=== PATIENT | female | born 1985 | race Caucasian/White ===

== ENCOUNTER 2016-11-18 11:24 | Emergency (ER) | payer OTHER ==
[2016-11-18] MEDS ORDERED: LORazepam 2 MG/ML DISP.SYRIN IV ONE (12:13)
[2016-11-18] MEDS ORDERED: ONDANSETRON HCL/PF 2 MG/ML VIAL IV ONE (12:13)
[2016-11-18] MEDS ORDERED: NORMAL SALINE 1,000 ML in NORMAL SALINE 1,000 ML IV ONE (12:13)
[2016-11-18] MEDS ORDERED: LORazepam 2 MG/ML DISP.SYRIN ONE (12:23)
[2016-11-18] MEDS ORDERED: ONDANSETRON HCL/PF 2 MG/ML VIAL ONE (12:23)
[2016-11-18 12:26] LABS: Hematocrit 39.2 % (37.0-47.0); Hemoglobin 13.3 gm/dL (12.5-16.0); Mean Cell Volume 90.5 fl (78-100); Mean Corpuscular Hemoglobin 30.7 pg (27-31); Mean Corpuscular Hgb Conc 33.9 g/dl (32-36); Mean Platelet Volume 8.5 fl (6.0-9.5); Neutrophil # 4.6 K/mm3 (1.3-6.0); Neutrophil % 63.4 % (42-75.0); Platelet Count 293 K/mm3 (150-450); Red Blood Count 4.33 M/mm3 (4.2-5.4); Red Cell Distribution Width 12.8 % (11.5-14.0); White Blood Count 7.2 K/mm3 (4.0-10.5)
--- NOTE | 2016-11-18 12:28 | ERNOTE ---
Medical Problem HPI - General Chief Complaint: Alcohol Intoxication Time Seen by Provider: 11/18/16 12:03 Source: patient Exam Limitations: no limitations - Immun/Allergies/Home Medications Immunizations: IMMUNIZATION HX Immunizations Up to Date Yes History of Influenza Vaccine No Hx Pneumococcal Vaccination No Allergies/Adverse Reactions: Allergies No Known Allergies Allergy (Verified 11/18/16 11:35) Home Medications: HOME MEDICATIONS Ondansetron [Zofran Odt] 4 mg PO Q6H PRN #20 tab 11/18/16 [Last Taken Unknown] chlordiazePOXIDE HCL [Librium] 10 mg PO QID PRN #30 capsule 11/18/16 [Last Taken Unknown] - History of Present History Narrative: She admits to heavy drinking alcohol for the past 7 years. She states she drinks at least a fifth of vodka every day over this time.. She has decided over the last 48 hours that she needs to quit drinking and pursuant to that she has indeed quit, but she is now having nausea and vomiting and appears to be going into some fairly profound shaking. Timing: constant Severity: moderate - to severe Review of Systems - Review of Systems Constitutional: Present: See HPI EYE: Present: no symptoms reported ENT: Present: no symptoms reported Respiratory: Present: no symptoms reported Cardiology: Present: no symptoms reported Gastrointestinal/Abdominal: Present: nausea, vomiting Genitourinary: Present: no symptoms reported Musculoskeletal: Present: no symptoms reported Skin: Present: no symptoms reported Neurological: Present: tremors Endocrine: Present: no symptoms reported Hematologic/Lymphatic: Present: no symptoms reported Psych: Present: no symptoms reported - Patient's Past Medical History Patient History - Medical: No pertinent hx Patient History - Cardiac/Respiratory: No pertinent hx Patient History - Cancer: No Hx of Cancer Patient History - Surgical Procedures: Patient History - Other: None - Social History Living Situations: home Abuse History: No History of abuse Psych History: No pertinent hx Alcohol Use: heavy Drug Use: none - Immunizations Immunizations Up to Date: Yes Hx Pneumococcal Vaccination: No History of Influenza Vaccine: No Physical Exam - Physical Exam General Appearance: Present: wd/wn, alert, severe distress, anxious Eye Exam: Normal inspection: bilateral, PERRL: bilateral Ears, Nose, Throat: Present: dry mucous membranes Neck: Present: normal inspection, nontender Respiratory: Present: no respiratory distress, normal breath sounds, no accessory muscle use, chest nontender, lungs clear Cardiovascular/Chest: Present: regular rate, rhythm, no murmur, normal peripheral pulses Gastrointestinal/Abdominal: Present: normal bowel sounds, nondistended, soft, no organomegaly, tenderness - generalized Rectal Exam: Present: deferred Back Exam: Present: normal inspection, normal range of motion Extremity Exam: Present: normal inspection, non-tender, no edema, normal range of motion Neurological Exam: Present: alert, oriented, normal mood/affect Skin Exam: Present: normal color, warm/dry Lymphatic Exam: Present: no adenopathy ED Progress - Results and Orders Patient's Lab Results:: I have reviewed the patient's lab results. - Vital Signs Patient's Vital Signs:: I have reviewed the patient's vital signs. Vital Signs: Vital Signs 11/18/16 11:25 Temperature 36.5 C Pulse Rate 73 Respiratory 14 Rate Blood Pressure 129/94 O2 Sat by Pulse 99 Oximetry - Progress/Reassessment Chief Complaint: Alcohol Intoxication Plan - Plan Plan: This is a fairly complex and convoluted case unfortunately. Patient is neither homicidal nor suicidal and therefore does not meet admission to the hospital criteria. We tried across a variety of places to have her placed in a treatment facility for alcoholism and none are available in the [facility]. I did however make phone calls on her behalf to AA in [place] and they're going to help her get set up with a sponsor here in [place]. I discussed with the internal communications manager and the committal orders have been rescinded. She will get prescriptions for both antinausea medicine and Librium to help with any anxiety she may experience from withdrawal from alcohol. She was informed that she needs to keep her court date on November 22 this year. Departure - Departure Clinical Impression: Alcoholism Disposition: Home self-care Condition: Good Instructions: Alcohol Use Disorder, Finding Treatment for Addiction Prescriptions: Ondansetron [Zofran Odt] 4 mg PO Q6H PRN #20 tab PRN Reason: Nausea And Vomiting chlordiazePOXIDE HCL [Librium] 10 mg PO QID PRN #30 capsule PRN Reason: Anxiety
--- OUTSIDE RECORDS SUMMARY | 2016-11-18 12:36 | XMS REPORT | Continuity of Care Document ---
:1985 Author Organization [facility] ([facility]) Address [address] [place] [address] Phone [phone] Care Team Providers Name Role Phone Provider, No-Primary Care Primary Care Provider Unavailable Source Comments This disclosure is being made pursuant to the Care Everywhere program, applicable federal and state laws, and may not contain all informaitonavailable regarding this patient.[facility] ([facility]) Active Allergies and Adverse Reactions Not on File Current Medications Not on file Active Problems Not on file Social History Tobacco Use Types Packs/Day Years Used Date Never Assessed Plan of Care Health Maintenance Due Date Last Done Comments Hepatitis B Vaccine (1 of 3 - Primary Series) 1985 Tdap Vaccine 1994 Lipid Disorder Screening 2001 MMR Vaccine 2001 Td Vaccine 2001 Varicella Vaccine (1 of 2 - Adult - No Evidence of 2001 Immunity) Cervical Cancer Screening 2013 Influenza Vaccine: Seasonal (#1) 03/22/2016 Results from Last 3 Months Not on file
--- OUTSIDE RECORDS SUMMARY | 2016-11-18 12:36 | XMS REPORT | Continuity of Care Document ---
:1985 Author Organization [facility] [place] [address] Care Team Providers Name Role Phone Unavailable Primary Care Provider Unavailable Source Comments This disclosure is being made pursuant to the Voucheres program and maynot contain all information available regarding this patient.[facility] Active Allergies and Adverse Reactions Not on File Current Medications Be aware that medications may not be up to date as of this document. Alwaysverify current medications with the patient. Not on file Active Problems Not on file Social History Tobacco Use Types Packs/Day Years Used Date Never Assessed Plan of Care Health Maintenance Due Date Last Done Comments Retired-Pertussis Vaccine Adult 2002 Retired-Tetanus Vaccine Adult 2002 Pap Smear 2004 Retired-INFLUENZA VACCINE 04/22/2015 Results from Last 3 Months Not on file
[2016-11-18 12:38] LABS: Albumin * 4.1 gm/dl (3.4-5.0); Anion Gap 12.6 mmol/L (6.8-13.8); BUN/Creatinine Ratio 12.1 (9.0-21.6); Bilirubin, Total 0.3 mg/dL (0.0-1.1); Ca. Corrected For Albumin 8.6 mg/dL (8.4-10.2); Carbon Dioxide 27.8 mmol/L (24-32.6); Magnesium 1.7 mg/dL (1.2-2.8); Potassium 4.4 mmol/L (3.4-4.6); Total Protein 8.1 gm/dL (6.2-8.2)
[2016-11-18 13:12] LABS: Urine Bilirubin Negative (NEGATIVE); Urine Blood Negative /ul (NEGATIVE); Urine Ketone Negative (NEGATIVE); Urine Nitrite Negative (NEGATIVE); Urine Protein Negative (NEGATIVE); Urine Specific Gravity 1.015 SP.GR. (1.005-1.010); Urine Urobilinogen Normal (NORMAL)
[2016-11-18 13:23] LABS: Urine Appearance Clear; Urine Bacteria TRACE; Urine Color Yellow; Urine RBC None Seen /hpf (0-5); Urine WBC None Seen /hpf (0-5)
[2016-11-18 13:25] LABS: Cocaine Ur Negative (NEGATIVE); Urine Barbiturate Negative (NEGATIVE); Urine Benzodiazepines Negative (NEGATIVE); Urine Opiates Negative (NEGATIVE); Urine PCP Negative (NEGATIVE); Urine THC Negative (NEGATIVE)
[2016-11-18] MEDS ORDERED: NORMAL SALINE 1,000 ML IV ONE ×2 (13:40→13:41)
[2016-11-18 16:16] VITALS: BP 117/74
== END 2016-11-18 16:10 | disposition home or self-care (01) ==
LOC: ER 11:24
DX: F10.239 Alcohol dependence with withdrawal, unspecified (principal); T51.0X1A Toxic effect of ethanol, accidental (unintentional), initial encounter; Y90.9 Presence of alcohol in blood, level not specified
CPT/HCPCS: 36415; 80053; 80307; 81001; 83735; 84703; 85025; 96374; 96375; 99284; G0481

== ENCOUNTER 2018-08-05 11:49 | Inpatient (IN) ==
[2018-08-05 12:15] LABS: Hematocrit 39.9 % (37.0-47.0); Hemoglobin 14.3 gm/dL (12.5-16.0); Mean Cell Volume 89.1 fl (78-100); Mean Corpuscular Hemoglobin 31.9 pg (27-31); Mean Corpuscular Hgb Conc 35.8 g/dl (32-36); Mean Platelet Volume 8.4 fl (8-12.5); Neutrophil # 9.9 K/mm3 (1.3-6.0); Neutrophil % 85.2 % (42-75.0); Platelet Count 183 K/mm3 (150-450); Red Blood Count 4.48 M/mm3 (4.2-5.4); Red Cell Distribution Width 12.8 % (11.5-14.0); White Blood Count 11.6 K/mm3 (4.0-10.5)
[2018-08-05] MEDS ORDERED: ONDANSETRON HCL/PF 2 MG/ML VIAL IV ONE ×2 (12:15→16:18)
[2018-08-05] MEDS ORDERED: KETOROLAC TROMETHAMINE 30 MG/ML VIAL IV ONE (12:15)
[2018-08-05] MEDS ORDERED: NORMAL SALINE 1,000 ML IV ONE (12:15)
[2018-08-05 12:21] LABS: Urine Appearance Cloudy (CLEAR); Urine Bilirubin Negative (NEGATIVE); Urine Blood 5 /ul (NEGATIVE); Urine Color Yellow; Urine Ketone 5 mg/dL (NEGATIVE); Urine Protein 30 mg/dL (NEGATIVE); Urine Specific Gravity 1.025 SP.GR. (1.005-1.010); Urine Urobilinogen Normal (NORMAL); Urine pH 6.5 pH (5.0-7.0)
--- NOTE | 2018-08-05 12:21 | ERNOTE ---
Abdominal HPI - Narrative Date of Service: 08/05/18 - General Chief Complaint: Abdominal Pain Time Seen by Provider: 08/05/18 12:00 Source: patient Exam Limitations: no limitations - Immun/Allergies/Home Medications Immunizatons: IMMUNIZATION HX Immunizations Up to Date Yes History of Influenza Vaccine No Hx Pneumococcal Vaccination No Allergies/Adverse Reactions: Allergies No Known Allergies Allergy (Verified 11/18/16 11:35) Home Medications: HOME MEDICATIONS NK 08/05/18 [Last Taken Unknown] - History of Present Illness Narrative: Describes as worsening abdominal pain on the right side upper and lower going straight through to the back since yesterday. No sudden onset. However the worst pain she has ever had. Has been very nauseated and is now vomiting even water. Denies any dysuria, constipation, diarrhea. States she drinks 2-3 beers daily but no hard alcohol use. No fevers. Date (Duration): 08/04/18 Timing: getting worse Quality: severe, sharpness, stabbing Activities at Onset: other - Just at work. Modifying Factors - (Improves): Present: other - slightly bending over. Modifying Factors - (Worsens): Present: lying down, sitting up Associated Symptoms: Present: back pain, nausea, vomiting, loss of appetite Prior Abdominal Problems: Present: none Review of Systems - Review of Systems Constitutional: Present: See HPI, weakness. Absent: recent illness, fever EYE: Present: no symptoms reported ENT: Present: no symptoms reported Respiratory: Present: no symptoms reported Cardiology: Present: no symptoms reported Gastrointestinal/Abdominal: Present: See HPI, nausea, vomiting, abdominal pain, eating less, drinking less. Absent: diarrhea Genitourinary: Present: no symptoms reported Musculoskeletal: Present: no symptoms reported Skin: Present: no symptoms reported Neurological: Present: no symptoms reported Endocrine: Present: no symptoms reported Hematologic/Lymphatic: Present: no symptoms reported Medical History (Last Updated 08/05/18 @ 12:00 by Gautam Hawkins RN) delivery delivered No acute medical problems Family History: Family History (Last Updated 08/05/18 @ 12:00 by Gautam Hawkins RN) Other No pertinent family history Social History: Preferred Language Turkish Do you have any orthodox or No cultural preference? Smoking Status Current every day smoker Have you smoked in the past 12 Yes months Do you dip or chew tobacco No Abuse History No History of abuse Psych History No pertinent hx Alcohol Use heavy Drug Use none No Social History Section defined Physical Exam - Physical Exam General Appearance: Present: wd/wn, alert, moderate distress Eye Exam: Normal inspection: bilateral, PERRL: bilateral, EOMI: bilateral Ears, Nose, Throat: Present: normal ENT inspection, dry mucous membranes Neck: Present: supple, full range of motion Respiratory: Present: no respiratory distress, no accessory muscle use, lungs clear Cardiovascular/Chest: Present: regular rate, rhythm, no murmur Gastrointestinal/Abdominal: Present: guarding, other - Hypoactive BS. Unable to palpate RUQ due to discomfort. Patient is doubled over in discomfort. Left side of abdomen nontender. Back Exam: Present: no CVA tenderness, no vertebral tenderness Extremity Exam: Present: normal range of motion Neurological Exam: Present: alert, oriented, no motor/sensory deficits Skin Exam: Present: normal color, warm/dry Progress - Results and Orders Patient's Lab Results:: I have reviewed the patient's lab results. - Vital Signs Patient's Vital Signs:: I have reviewed the patient's vital signs. Vital Signs: Vital Signs 08/05/18 11:55 08/05/18 12:08 Temperature 36.5 C Pulse Rate 97 94 Respiratory Rate 18 18 Blood Pressure 135/84 136/86 O2 Sat by Pulse Oximetry 97 98 - CT/Ultrasound CT/Ultrasound Narrative: CT/US abdomen both indicate likely pancreatitis with enlarged gallbladder no signs of cholecystitis. No signs of necrosis - Progress/Reassessment Chief Complaint: Abdominal Pain Progress:: Improved - Will give morphine and reassess. 1430 Improved but still 7/10. Will add another morphine 2mg IV. 1929 pain much improved. However still present. - Transfer of Care Additional Notes: Spoke with Dr. Portillo who agrees with observation for IV fluids and treatment of pain. She will assume care of patient at transfer. Departure Clinical Impression: Acute pancreatitis Qualifiers: Pancreatitis type: alcohol induced Acute pancreatitis complication: no infection or necrosis Qualified Code(s): K85.20 - Alcohol induced acute pancreatitis without necrosis or infection UTI (urinary tract infection) Qualifiers: Urinary tract infection type: acute cystitis Hematuria presence: with hematuria Qualified Code(s): N30.01 - Acute cystitis with hematuria - Departure Disposition: Still a patient Condition: Stable
[2018-08-05 12:22] LABS: Urine Bacteria 4+; Urine Nitrite Negative (NEGATIVE); Urine RBC 0-5 /hpf (0-5); Urine WBC >50 /hpf (0-5)
[2018-08-05 12:25] LABS: Albumin * 3.5 gm/dl (3.4-5.0); Anion Gap 12.4 mmol/L (6.8-13.8); BUN/Creatinine Ratio 18.7 (9.0-21.6); Bilirubin, Total 0.3 mg/dL (0.0-1.1); Ca. Corrected For Albumin 8.8 mg/dL (8.4-10.2); Calcium * 8.7 mg/dL (7.9-10.9); Carbon Dioxide 27.7 mmol/L (24-32.6); Potassium 3.1 mmol/L (3.4-4.6); Total Protein 7.4 gm/dL (6.2-8.2)
[2018-08-05] MEDS ORDERED: LEVOFLOXACIN IN DEXTROSE 5 % 750 MG/150 ML BAG IV ONE (12:52)
[2018-08-05] MEDS ORDERED: MORPHINE SULFATE 2 MG/ML DISP.SYRIN IV ONE ×4 (13:04→17:10)
[2018-08-05] MEDS ORDERED: DIATRIZOATE MEGLUMINE, SODIUM 30 ML BTL PO ONE (14:05)
[2018-08-05] MEDS ORDERED: NORMAL SALINE 1,000 ML IV PRN (16:24)
[2018-08-05] MEDS: NORMAL SALINE 1,000 ML IV PRN ×2 (16:25→23:07)
[2018-08-05] MEDS ORDERED: PROCHLORPERAZINE EDISYLATE 5 MG/ML VIAL IV ONE (17:10)
[2018-08-05] MEDS ORDERED: MORPHINE SULFATE 2 MG/ML DISP.SYRIN IV PRN (19:15)
[2018-08-05] MEDS ORDERED: ONDANSETRON HCL/PF 2 MG/ML VIAL IV PRN (19:16)
[2018-08-05] MEDS ORDERED: PROCHLORPERAZINE EDISYLATE 5 MG/ML VIAL IV PRN (19:17)
[2018-08-05] MEDS ORDERED: LORazepam 2 MG/ML DISP.SYRIN IV PRN (19:42)
[2018-08-05] MEDS ORDERED: POTASSIUM CHLORIDE 20 MEQ TABLET.SA PO ONE (19:48)
[2018-08-05] MEDS ORDERED: POTASSIUM CHLORIDE 20 MEQ TABLET.SA ONE (21:50)
[2018-08-06 06:03] LABS: Hematocrit 31.6 % (37.0-47.0); Mean Cell Volume 92.1 fl (78-100); Mean Corpuscular Hemoglobin 32.1 pg (27-31); Mean Corpuscular Hgb Conc 34.8 g/dl (32-36); Mean Platelet Volume 8.6 fl (8-12.5); Neutrophil # 3.8 K/mm3 (1.3-6.0); Neutrophil % 69.7 % (42-75.0); Platelet Count 110 K/mm3 (150-450); Red Blood Count 3.43 M/mm3 (4.2-5.4); White Blood Count 5.5 K/mm3 (4.0-10.5)
[2018-08-06 06:21] LABS: Albumin * 2.5 gm/dl (3.4-5.0); Anion Gap 14.1 mmol/L (6.8-13.8); BUN/Creatinine Ratio 15.4 (9.0-21.6); Bilirubin, Total 0.5 mg/dL (0.0-1.1); Ca. Corrected For Albumin 8.4 mg/dL (8.4-10.2); Calcium * 7.5 mg/dL (7.9-10.9); Carbon Dioxide 25.2 mmol/L (24-32.6); Potassium 3.3 mmol/L (3.4-4.6); Total Protein 5.4 gm/dL (6.2-8.2)
--- NOTE | 2018-08-06 06:54 | HP ---
Chief Complaint - Chief Complaint Date of Service: 08/06/18 Time of Service: 06:53 Chief Complaint: abdominal pain History of Present Illness: Patient with intermittent history of alcohol abuse presented to the ED after having two days of back pain and abdominal cramping, severe enough to make her have difficulty walking. Has never had this before. She relapsed and started drinking again about a month ago, and was drinking 6 beers a day. She mainly has right sided abdominal pain that radiates to her back. She does not take medications, and her last drink was two days prior. Reports having a little upper respiratory congestion, denies fever, CP, SOB, constipation, diarrhea, skin changes. 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 Smoking Status Current every day smoker Have you smoked in the past 12 Yes months Do you dip or chew tobacco No Abuse History No History of abuse Psych History No pertinent hx Alcohol Use heavy Drug Use none No Social History Section defined Review Of Systems (GEN) - Review of Systems Generalized/Overall Review: Absent: Fever EENTM: Present: Nose Congestion Respiratory: Absent: Cough, Shortness of Breath Cardiac: Absent: Chest Pain, Edema Abdominal: Present: Nausea, Vomiting. Absent: Constipation, Diarrhea Genitourinary: Absent: Burning Musculoskeletal: Present: Back Pain Skin: Absent: Lesions Immunizations: IMMUNIZATION HX Immunizations Up to Date Yes History of Influenza Vaccine No Hx Pneumococcal Vaccination No Allergies/Adverse Reactions: Allergies Allergy/AdvReac Type Severity Reaction Status Date / Time No Known Allergies Allergy Verified 11/18/16 11:35 Home Medications: HOME MEDICATIONS NK 08/05/18 [Last Taken Unknown] Exam - Exam Vital Signs: Vital Signs - Last Taken Temp 36.7 C 08/06/18 02:17 Pulse 78 08/06/18 02:17 Resp 16 08/06/18 02:17 BP 126/80 08/06/18 02:17 Pulse Ox 98 12/16/18 02:17 Constitutional: Present: Alert, Oriented x3, Cooperative, Well developed - appears uncomfortable with movement Respiratory: Present: normal breath sounds, no respiratory distress, No wheezing Cardiovascular/Chest: Present: regular rate, rhythm Abdomen: Present: tender - very tender of right abdomen, no bowel sounds. Absent: distended Extremity: Absent: lower extremity edema Appearance: Present: appropriate appearance Eye contact: Present: cooperative Thoughts: Present: normal thought pattern Diagnostic Studies: Abnormal Lab Results 08/05/18 08/05/18 08/05/18 Range/Units 12:06 12:06 12:06 WBC 11.6 H (4.0-10.5) K/mm3 RBC (4.2-5.4) M/mm3 Hgb (12.5-16.0) gm/dL Hct (37.0-47.0) % MCH 31.9 H (27-31) pg Plt Count (150-450) K/mm3 Immature Gran % (Auto) 0.80 H (0.001-0.429) % Immature Gran # (Auto) 0.09 H (0.000-0.0310) K/mm3 Neutrophils % 85.2 H (42-75.0) % Lymphocytes % 6.7 L (20-51) % Monocytes % (0.0-9) % Neutrophils # 9.9 H (1.3-6.0) K/mm3 Lymphocytes # 0.78 L (1.5-3.5) k/mm3 Potassium 3.1 L (3.4-4.6) mmol/L Anion Gap (6.8-13.8) mmol/L Random Glucose 148 H (70-110) mg/dL Lactic Acid, Venous (0.4-2.0) mmol/L Calcium (7.9-10.9) mg/dL ALT (19-67) U/L Total Protein (6.2-8.2) gm/dL Albumin (3.4-5.0) gm/dl Amylase 172 H (25-115) U/L Lipase 1422 H (73-393) U/L Procalcitonin (0.05-0.50) ng/mL Urine Protein 30 H (NEGATIVE) mg/dL Urine Blood 5 H (NEGATIVE) /ul Ur Leukocyte Esterase 100 H (NEGATIVE) /ul Urine WBC >50 H (0-5) /hpf Urine Bacteria 4+ H (NONE) 08/05/18 08/05/18 08/06/18 Range/Units 12:06 12:06 06:00 WBC (4.0-10.5) K/mm3 RBC 3.43 L (4.2-5.4) M/mm3 Hgb 11.0 L (12.5-16.0) gm/dL Hct 31.6 L (37.0-47.0) % MCH 32.1 H (27-31) pg Plt Count 110 L (150-450) K/mm3 Immature Gran % (Auto) (0.001-0.429) % Immature Gran # (Auto) (0.000-0.0310) K/mm3 Neutrophils % (42-75.0) % Lymphocytes % 17.7 L (20-51) % Monocytes % 11.3 H (0.0-9) % Neutrophils # (1.3-6.0) K/mm3 Lymphocytes # 0.97 L (1.5-3.5) k/mm3 Potassium (3.4-4.6) mmol/L Anion Gap (6.8-13.8) mmol/L Random Glucose (70-110) mg/dL Lactic Acid, Venous 3.6 H* (0.4-2.0) mmol/L Calcium (7.9-10.9) mg/dL ALT (19-67) U/L Total Protein (6.2-8.2) gm/dL Albumin (3.4-5.0) gm/dl Amylase (25-115) U/L Lipase (73-393) U/L Procalcitonin Less than 0.05 L (0.05-0.50) ng/mL Urine Protein (NEGATIVE) mg/dL Urine Blood (NEGATIVE) /ul Ur Leukocyte Esterase (NEGATIVE) /ul Urine WBC (0-5) /hpf Urine Bacteria (NONE) 08/06/18 Range/Units 06:00 WBC (4.0-10.5) K/mm3 RBC (4.2-5.4) M/mm3 Hgb (12.5-16.0) gm/dL Hct (37.0-47.0) % MCH (27-31) pg Plt Count (150-450) K/mm3 Immature Gran % (Auto) (0.001-0.429) % Immature Gran # (Auto) (0.000-0.0310) K/mm3 Neutrophils % (42-75.0) % Lymphocytes % (20-51) % Monocytes % (0.0-9) % Neutrophils # (1.3-6.0) K/mm3 Lymphocytes # (1.5-3.5) k/mm3 Potassium 3.3 L (3.4-4.6) mmol/L Anion Gap 14.1 H (6.8-13.8) mmol/L Random Glucose (70-110) mg/dL Lactic Acid, Venous (0.4-2.0) mmol/L Calcium 7.5 L (7.9-10.9) mg/dL ALT 9 L (19-67) U/L Total Protein 5.4 L (6.2-8.2) gm/dL Albumin 2.5 L (3.4-5.0) gm/dl Amylase 198 H (25-115) U/L Lipase 1648 H (73-393) U/L Procalcitonin (0.05-0.50) ng/mL Urine Protein (NEGATIVE) mg/dL Urine Blood (NEGATIVE) /ul Ur Leukocyte Esterase (NEGATIVE) /ul Urine WBC (0-5) /hpf Urine Bacteria (NONE) Laboratory Results WBC 5.5 K/mm3 (4.0-10.5) D 08/06/18 06:00 RBC 3.43 M/mm3 (4.2-5.4) L 08/06/18 06:00 Hgb 11.0 gm/dL (12.5-16.0) L 08/06/18 06:00 Hct 31.6 % (37.0-47.0) L 08/06/18 06:00 MCV 92.1 fl (78-100) 08/06/18 06:00 MCH 32.1 pg (27-31) H 08/06/18 06:00 MCHC 34.8 g/dl (32-36) 08/06/18 06:00 RDW 13.0 % (11.5-14.0) 08/06/18 06:00 Plt Count 110 K/mm3 (150-450) L 08/06/18 06:00 MPV 8.6 fl (8-12.5) 08/06/18 06:00 Immature Gran % (Auto) 0.40 % (0.001-0.429) 08/06/18 06:00 Immature Gran # (Auto) 0.02 K/mm3 (0.000-0.0310) 08/06/18 06:00 Neutrophils % 69.7 % (42-75.0) 08/06/18 06:00 Lymphocytes % 17.7 % (20-51) L 08/06/18 06:00 Monocytes % 11.3 % (0.0-9) H 08/06/18 06:00 Eosinophils % 0.7 % (0.0-3.0) 08/06/18 06:00 Basophils % 0.2 % (0.0-1.0) 08/06/18 06:00 Nucleated RBC % 0.0 k/mm3 (0-1) 08/06/18 06:00 Neutrophils # 3.8 K/mm3 (1.3-6.0) 08/06/18 06:00 Lymphocytes # 0.97 k/mm3 (1.5-3.5) L 08/06/18 06:00 Monocytes # 0.6 k/mm3 (0.0-1.0) 08/06/18 06:00 Eosinophils # 0.0 k/mm3 (0.0-0.7) 08/06/18 06:00 Absolute Basophils 0.0 k/mm3 (0.0-0.1) 08/06/18 06:00 Sodium 140 mmol/L (132-142) 08/06/18 06:00 Plasma Sodium 140 mmol/L (130-142) 08/06/18 06:00 Potassium 3.3 mmol/L (3.4-4.6) L 08/06/18 06:00 Chloride 104 mmol/L (97-106) 08/06/18 06:00 Carbon Dioxide 25.2 mmol/L (24-32.6) 08/06/18 06:00 Anion Gap 14.1 mmol/L (6.8-13.8) H 08/06/18 06:00 BUN 10 mg/dL (3-23) 08/06/18 06:00 Creatinine 0.65 mg/dL (0.4-1.4) 08/06/18 06:00 Est GFR (Non-Af Amer) 110 mL/min (60-130) 08/06/18 06:00 BUN/Creatinine Ratio 15.4 (9.0-21.6) 08/06/18 06:00 Random Glucose 87 mg/dL (70-110) D 08/06/18 06:00 Lactic Acid, Venous 1.8 mmol/L (0.4-2.0) 08/05/18 15:09 Calcium 7.5 mg/dL (7.9-10.9) L 08/06/18 06:00 Calcium Adj for Albumin 8.4 mg/dL (8.4-10.2) 08/06/18 06:00 Total Bilirubin 0.5 mg/dL (0.0-1.1) 08/06/18 06:00 AST 23 U/L (0-48) 08/06/18 06:00 ALT 9 U/L (19-67) L 08/06/18 06:00 Alkaline Phosphatase 73 U/L (50-170) 08/06/18 06:00 Total Protein 5.4 gm/dL (6.2-8.2) L 08/06/18 06:00 Albumin 2.5 gm/dl (3.4-5.0) L 08/06/18 06:00 Amylase 198 U/L (25-115) H 08/06/18 06:00 Lipase 1648 U/L (73-393) H 08/06/18 06:00 Procalcitonin Less than 0.05 ng/mL (0.05-0.50) L 08/05/18 12:06 Urine Color Yellow 08/05/18 12:06 Urine Appearance Cloudy (CLEAR) 08/05/18 12:06 Urine pH 6.5 pH (5.0-7.0) 08/05/18 12:06 Ur Specific [place] 1.025 SP.GR. (1.005-1.010) 08/05/18 12:06 Urine Protein 30 mg/dL (NEGATIVE) H 08/05/18 12:06 Urine Glucose (UA) Negative mg/dL (NEGATIVE) 08/05/18 12:06 Urine Ketones 5 mg/dL (NEGATIVE) 08/05/18 12:06 Urine Blood 5 /ul (NEGATIVE) H 08/05/18 12:06 Urine Nitrate Negative (NEGATIVE) 08/05/18 12:06 Urine Bilirubin Negative mg/dl (NEGATIVE) 08/05/18 12:06 Prot Sulfosalicylic Acd 1+ mg/dL (0) 08/05/18 12:06 Urine Urobilinogen Normal EU/dl (NORMAL) 08/05/18 12:06 Ur Leukocyte Esterase 100 /ul (NEGATIVE) H 08/05/18 12:06 Urine RBC 0-5 /hpf (0-5) 08/05/18 12:06 Urine WBC >50 /hpf (0-5) H 08/05/18 12:06 Ur Epithelial Cells None seen /hpf (0-5) 08/05/18 12:06 Urine Bacteria 4+ (NONE) H 08/05/18 12:06 Urine Culture Comments Culture to follow 08/05/18 12:06 Assessment/Plan - Assessment/Plan (1) Acute pancreatitis Assessment: Lipase was elevated to 1422, and CT was concerning for pancreatitis. Will treat for pancreatitis with fluids and pain management. She was controlled on morphine overnight, and will attempt to transition to po norco today. She admits to drinking a six pack daily. US of her gallbladder was obtained, which showed gallbladder distention without stones or wall thickening. If her pain persists, will obtain HIDA scan. Source of her pancreatitis could be secondary to alcohol or biliary source. Without gallstones, alcohol source is more likely. Nausea is currently controlled, but she doesn't feel hungry. Will start clear liquid diet. Has not required zofran or compazine since leaving the ED. Will DC compazine. Problem: Acute Qualifiers: Pancreatitis type: unspecified pancreatitis type Acute pancreatitis complication: no infection or necrosis Qualified Code(s): K85.90 - Acute pancreatitis without necrosis or infection, unspecified (2) UTI (urinary tract infection) Assessment: Urine culture positive for gram negative bacilli. Will start 3 day course of bactrim. She has been afebrile. Problem: Acute Qualifiers: Urinary tract infection type: acute cystitis Hematuria presence: with hematuria Qualified Code(s): N30.01 - Acute cystitis with hematuria (3) Alcoholism Assessment: Patient reports having a strong support system, but had a relapse. She feels comfortable going home after discharge. Problem: Acute
[2018-08-06] MEDS: NORMAL SALINE 1,000 ML IV PRN ×2 (07:13→14:49)
[2018-08-06] MEDS ORDERED: PROCHLORPERAZINE EDISYLATE 5 MG/ML VIAL IV PRN ×2 (07:32→19:55)
[2018-08-06] MEDS ORDERED: HYDROcodone/ACETAMINOPHEN 1 EACH TABLET PO PRN ×2 (07:32→18:33)
[2018-08-06] MEDS ORDERED: MORPHINE SULFATE 2 MG/ML DISP.SYRIN IV PRN (07:34)
[2018-08-06] MEDS ORDERED: ONDANSETRON HCL/PF 2 MG/ML VIAL IV PRN (07:37)
[2018-08-06] MEDS ORDERED: POTASSIUM CHLORIDE 20 MEQ TABLET.SA PO ONE (08:08)
[2018-08-06] MEDS: SULFAMETHOXAZOLE/TRIMETHOPRIM 1 TAB TABLET PO SCH ×2 (09:06→21:50)
[2018-08-06] MEDS: HYDROcodone/ACETAMINOPHEN 1 EACH TABLET PO PRN ×2 (12:36→16:36)
--- NOTE | 2018-08-06 17:38 | DS ---
(1) Acute pancreatitis Problem: Acute Qualifiers: Pancreatitis type: unspecified pancreatitis type Acute pancreatitis complication: no infection or necrosis Qualified Code(s): K85.90 - Acute pancreatitis without necrosis or infection, unspecified (2) UTI (urinary tract infection) Problem: Acute Qualifiers: Urinary tract infection type: acute cystitis Hematuria presence: with hematuria Qualified Code(s): N30.01 - Acute cystitis with hematuria (3) Alcoholism Problem: Acute Description of Stay: Patient with PMHx of intermittent alcohol abuse presented to the ED with two days of right sided abdominal cramping and back pain, which progressed to the point where she was unable to walk. CT imaging was concerning for pancreatitis, and her lipase was 1422. She reported drinking about a six pack a day. Has never been hospitalized before. She is not prescribed any medications. A gallbladder ultrasound showed some gallbladder distention without stones or wall thickening, and her AST/ALT, and alk phos were normal. She was treated for pancreatitis, thought to be secondary to alcohol use. She required several doses of zofran and compazine to control her nausea in the ED, and did not require further doses after arriving to the floor. She received morphine in the ED, and was transitioned to 10 mg norco, which she felt controlled her pain sufficiently. DC orders were placed for the day after admission. She then started vomiting, and it was felt that she would benefit from an additional night in the hospital. The vomiting may have been from the increased dose of 10 mg norco. She did not require further pain medication, and continued to tolerat e a clear liquid diet. Lipase value was used to aid in diagnosis, but her clinical picture guided her treatment, and repeat lipase values were not needed. She felt comfortable leaving the hospital on the day of discharge. Her urine culture was also positive for gram negative bacilli. She was given a dose of levaquin in the ED, and started on bactrim. Procedures Performed: none Results and Findings: Pending Mircobiology Results 08/05/18 13:00 Blood Blood Culture - Preliminary NO GROWTH 24 HOURS 08/05/18 13:15 Blood Blood Culture - Preliminary NO GROWTH 24 HOURS 08/05/18 12:00 Urine,Clean Catch Urine Culture - Preliminary Gram Negative Bacilli Lab Pending Results 08/05/18 12:06: WBC 11.6 H, RBC 4.48, Hgb 14.3, Hct 39.9, MCV 89.1, MCH 31.9 H, MCHC 35.8, RDW 12.8, Plt Count 183, MPV 8.4, Immature Gran % (Auto) 0.80 H, Immature Gran # (Auto) 0.09 H, Neutrophils % 85.2 H, Lymphocytes % 6.7 L, Monocytes % 7.1, Eosinophils % 0.0, Basophils % 0.2, Nucleated RBC % 0.0, Neutrophils # 9.9 H, Lymphocytes # 0.78 L, Monocytes # 0.8, Eosinophils # 0.0, Absolute Basophils 0.0 08/05/18 12:06: Sodium 137, Plasma Sodium 138, Potassium 3.1 L, Chloride 100, Carbon Dioxide 27.7, Anion Gap 12.4, BUN 14, Creatinine 0.75, Est GFR (Non-Af Amer) 93, BUN/Creatinine Ratio 18.7, Random Glucose 148 H, Calcium 8.7, Calcium Adj for Albumin 8.8, Total Bilirubin 0.3, AST 37, ALT 20, Alkaline Phosphatase 88, Total Protein 7.4, Albumin 3.5, Amylase 172 H, Lipase 1422 H 08/05/18 12:06: Urine Color Yellow, Urine Appearance Cloudy, Urine pH 6.5, Ur Specific Tiff 1.025, Urine Protein 30 H, Urine Glucose (UA) Negative, Urine Ketones 5, Urine Blood 5 H, Urine Nitrate Negative, Urine Bilirubin Negative, Prot Sulfosalicylic Acd 1+, Urine Urobilinogen Normal, Ur Leukocyte Esterase 100 H, Urine RBC 0-5, Urine WBC >50 H, Ur Epithelial Cells None seen, Urine Bacteria 4+ H, Urine Culture Comments Culture to follow 08/05/18 12:06: Lactic Acid, Venous 3.6 H* 08/05/18 12:06: Procalcitonin Less than 0.05 L 08/05/18 15:09: Lactic Acid, Venous 1.8 08/06/18 06:00: WBC 5.5 D, RBC 3.43 L, Hgb 11.0 L, Hct 31.6 L, MCV 92.1, MCH 32.1 H, MCHC 34.8, RDW 13.0, Plt Count 110 L, MPV 8.6, Immature Gran % (Auto) 0.40, Immature Gran # (Auto) 0.02, Neutrophils % 69.7, Lymphocytes % 17.7 L, Monocytes % 11.3 H, Eosinophils % 0.7, Basophils % 0.2, Nucleated RBC % 0.0, Neutrophils # 3.8, Lymphocytes # 0.97 L, Monocytes # 0.6, Eosinophils # 0.0, Absolute Basophils 0.0 08/06/18 06:00: Sodium 140, Plasma Sodium 140, Potassium 3.3 L, Chloride 104, Carbon Dioxide 25.2, Anion Gap 14.1 H, BUN 10, Creatinine 0.65, Est GFR (Non-Af Amer) 110, BUN/Creatinine Ratio 15.4, Random Glucose 87 D, Calcium 7.5 L, Calcium Adj for Albumin 8.4, Total Bilirubin 0.5, AST 23, ALT 9 L, Alkaline Phosphatase 73, Total Protein 5.4 L, Albumin 2.5 L, Amylase 198 H, Lipase 1648 H Discharge Location: Home Disposition: Home self-care Condition: Good Discharge Activity: Activity as tolerated Discharge Diet: Low fat/chol Prescriptions (Any new or edited meds): HYDROcodone/ACETAMINOPHEN [[place] 5-325] 2 ea PO Q4H PRN 3 Days #24 tab PRN Reason: Pain Ondansetron HCl [Zofran] 4 mg PO Q6H #10 tablet Sulfamethoxazole/Trimethoprim [Bactrim] 1 tab PO BID #5 tablet Complete Home Medications List: Complete Home Medication List: HYDROcodone/ACETAMINOPHEN [[place] 5-325] 2 ea PO Q4H PRN 3 Days #24 tab 08/06/18 Ondansetron HCl [Zofran] 4 mg PO Q6H #10 tablet 08/06/18 Sulfamethoxazole/Trimethoprim [Bactrim] 1 tab PO BID #5 tablet 08/06/18
--- NOTE | 2018-08-06 19:58 | PN ---
Progess Note - Interim Date: 08/06/18 Time: 19:56 Narrative: 08/06/18 19:56 Informed by patient's nurse that she began vomiting just prior to discharge. Will postpone, and hopefully DC tomorrow. She had not vomited all day, but started vomiting after receiving 10 mg norco, so she may be having a reaction to the pain medication. Will monitor overnight, and if she continues to vomit, will need an alternate pain medicine.
[2018-08-07] MEDS: SULFAMETHOXAZOLE/TRIMETHOPRIM 1 TAB TABLET PO SCH (08:19)
[2018-08-07 08:54] VITALS: BP 132/79
== END 2018-08-07 08:57 | disposition home or self-care (01) | DRG 439 ==
LOC: MS 11:49 → ER 11:49 → OBSVTOIN 19:23 → MS 20:38
PROVIDERS: ADMIT Family Medicine; ATTEND Family Medicine
CPT/HCPCS: 36415; 74177; 76700; 80053; 81001; 82150; 83605; 83690; 84145; 85025; 87040; 87086; 96361; 96365; 96366; 96375; 96376; 99285; J2405